=== PATIENT | female | born 1975 | race Caucasian/White ===

== ENCOUNTER → 2021-12-12 01:38 | Outpatient (CLI) | payer BC, SELFPAY ==
--- NOTE | 2021-12-12 15:00 | DI.MAMMO_ITS ---
Exam(s) MAMMO SCREENING EXAM: MAMMO SCREENING CLINICAL HISTORY: SCREENING, Z12.39 TECHNIQUE: Bilateral full field digital CC and MLO mammographic images were obtained with 3D tomosyn thesis and utilizing computer aided detection (CAD). COMPARISON: Available for comparison. FINDINGS: Masses/Architectural Distortion: There is a new round ovoid density in the inferior left breast seen on the MLO view. There is also new ovoid density in the medial aspect of the right breast on the charging crane operator niocaudad view. Microcalcifications: No suspicious pleomorphic-type are seen. Skin Thickening/Nipple Retraction: None. IMPRESSION: 1. Ovoid density seen in both the left and right breast as described above. 2. These area should be further evaluated with spot compression views and ultrasound. BI-RADS Category 0 - Assessment Incomplete: Need additional imaging evaluation Breast Density - Category B - Scattered areas of fibroglandular density Breast density category C or D implies that the patient has dense breast tissue. Dense breast tissue is very common and is not abnormal but dense breast tissue can make it harder to find cancer on a ma mmogram. Also, dense breast tissue may increase their breast cancer risk. This information about the result of the mammogram report was provided to the patient to raise their awareness. Use this report when you speak with the patient about their risks for breast cancer, which includes their family hist ory. At that time, you may recommend for more screening tests (Ultrasound or MRI) as they might be us eful based on their risk. A negative radiographic report should not delay biopsy if a dominant or clinically suspicious mass is present. Up to ten percent of cancers are not identified on mammography. A negative report may reinforce clinical impression. Adenosis and dense breasts may obscure an underlying neoplasm. False positive reports average 6 to 10%. Patient will receive a letter notifying them of these results.
== END ==
PROVIDERS: Visit Provider Nurse Practitioner Family
DX: Z12.31 Encounter for screening mammogram for malignant neoplasm of breast (principal); R92.8 Other abnormal and inconclusive findings on diagnostic imaging of breast
CPT/HCPCS: 77063; 77067

== ENCOUNTER → 2022-01-06 00:19 | Outpatient (CLI) | payer BC, SELFPAY ==
--- OUTSIDE RECORDS SUMMARY | 2022-01-06 00:27 | XMS_ITS | Encounter Summary ---
:1975 Author Organization [facility] [place] [address] Care Team Providers Name Role Phone Karine Dailey MD Primary Care Provider Reason for Visit Reason Comments Follow-up Encounter Details Date Type Department Care Team Description 01/08/2015 Follow-Up Dermatology at [facility], DR JOSSIE miller ([address] Glass, Wally Gomez MD [facility] DR [place] [address] Dx) [address] [place] [address] Social History Tobacco Use Types Packs/Day Years Used Date Never Smoker Sex Assigned at Date Recorded Not on file documented as of this encounter [employer] Avni Rock, CLAU - 01/08/2015 8:55 AM EDT Chief Complaint: Lesion History of Present Illness Madeline Child is a 39 y.o. female. Complains of a pigmented lesion on the back of her neck that has been present for many years but several weeks ago it developed a red dot in the center but that resolved. No symtpoms. Never been treated or biopsied. ? N/A Skin Cancer History No personal history of skin cancer. No family history of skin cancer. Allergies Allergies not on file Medications No current outpatient prescriptions on file. Reconciled as above Review of Systems Significant for no fevers, chills, night sweats, or fatigue and no other pertinent and acute changesin constitutional, other skin, HEENT, gastrointestinal, respiratory, cardiovascular, genitourinary, lymphatic, musculoskeletal, endocrine, neurologic, psychiatric, allergy/immunology systems upon specific queries. Past Medical History HTN, hypothyroidism Past Surgical History Gallbladder, Fibroidectomy, tonsillectomy Family Medical History NMSC - father Social History Tobacco: No Alcohol: 3-4 ounces per week Examination Standby: Lachelle Hollis, Clinical Scribe Pain 0/10. Mood is appropriate. Well developed, well-nourished in no apparent distress, alert and oriented to time, person, place and situation. Skin Type: II. Focused examination of head - including the face, ears, nose - neck significant for a soft 6 mm thick brown glynn pink papule on left posterior neck. Assessment and Plan Benign Nevus Morphology reassuring for benign nevus. No symptoms. No treatment at this time. Discussed option to remove cosmetically for which the patient will be financially responsible. Return to clinic prn if changes in nevi observed or symptoms develop. Counseled: sun protection, self skin exams, regular provider skin exams, and the ABCDEs of melanoma/NMSC (handout given). Answered all questions. I am documenting this encounter acting as the scribe for and in the presence of Dr. Mckinnon: AVNI ROCK, REHABILITATION SUPERVISOR and Lachelle Hollis, Clinical Scribe Follow-up: PRN I performed the above scribed service and agree with the accuracy of the documentation in this encounter. Wally Mckinnon MD FAAD Section of Dermatology [facility] documented in this encounter Plan of Treatment Not on filedocumented as of this encounter Visit Diagnoses Diagnosis Benign nevus - Primary Benign neoplasm of skin, site unspecifie d documented in this encounter Care Teams Demand Planning Analyst Relationship Specialty Start Date End Date Karine Dailey MD PCP - General 12/24/[address] [place] [address] documented as of this encounter
--- OUTSIDE RECORDS SUMMARY | 2022-01-06 00:27 | XMS_ITS | Clinical Summary ---
:1975 Author Organization [facility] [place] [address] Care Team Providers Name Role Phone Karine Dailey MD Primary Care Provider Allergies Active Allergy Reactions Severity Noted Date Comments Troy Inhibitors 01/08/2015 Sulfamethoxazole-Trimethoprim 01/08/2015 Medications Medication Sig Dispensed Refills Start Date End Date Status losartan (COZAAR) 25 mg Take 25 mg by 0 Active Tablet mouth daily. hydrochlorothiazide Take 25 mg by 0 Active (HYDRODIURIL) 25 mg Tablet mouth daily. levothyroxine (SYNTHROID) Take 100 mcg 0 Active 100 mcg Tablet by mouth daily. multivitamin (THERAGRAN) Take 1 tablet 0 Active Tablet by mouth daily. Calcium Carbonate-Vitamin Take by 0 Active D3 600 mg(1,500mg) -400 mouth. unit Capsule Flaxseed Oil 1,000 mg Take by 0 Active Capsule mouth. pyridoxine (B-6) 100 mg Take 100 mg 0 Active Tablet by mouth daily. Ascorbic Acid 500 mg Take by 0 Active Tablet, Chewable mouth. fexofenadine (JACQUELYN) 180 Take 180 mg 0 Active mg Tablet by mouth daily. ranitidine (ZANTAC) 75 mg Take 75 mg by 0 Active Tablet mouth 2 times daily. Active Problems Problem Noted Date Hypothyroidism 01/08/2015 Social History Tobacco Use Types Packs/Day Years Used Date Never Smoker Sex Assigned at Date Recorded Not on file Plan of Treatment Health Maintenance Due Date Last Done Comments Covid-19 Vaccine (#1) 1978 HIV screen 11/03/1991 Hepatitis C Screening 11/03/1991 Tdap adult 1992 Tetanus vaccine 1992 HPV test 11/03/2003 PAP Smear 11/03/2003 Breast Cancer Share Decision Needed 2013 Colonoscopy 2018 Influenza (Flu) vaccine (1 of - Influenza standard 02/02/2022 series) Care Teams Fraud Prevention Analyst Relationship Specialty Start Date End Date Karine Dailey MD PCP - General 12/24/[address] [place] [id number]
--- NOTE | 2022-01-06 09:11 | DI.MAMMO_ITS ---
Exam(s) US BREAST RT LIMITED US BREAST LT LIMITED MG MAMMO SCREEN CALL BACK BI EXAM: MG MAMMO SCREEN CALL BACK BI and bilateral breast limited ultrasound CLINICAL HISTORY: OVOID DENSITY BILAT BREAST. TECHNIQUE: Craniocaudal and mediolateral oblique Full Field Digital Mammography views of the bilater al breast with Computer Aided Diagnosis followed by Tomosynthesis and bilateral breast ultrasound. COMPARISON: Comparison made with prior examinations. FINDINGS: Mammography/Tomosynthesis: Masses/Architectural Distortion: The nodular opacity seen in the left breast is not visualized on the additional views. It appears represent overlying fibroglandular tissue. The nodular density in the right breast is less concerning on the additional views and may represent an intraparenchymal lymph node. Microcalcifictions: No suspicious pleomorphic-type are seen. Skin Thickening/Nipple Retraction: None. Bilateral limited breast US: Echotexture: Normal appearance of the glandular tissue. Shadowing: No suspicious foci. Cyst: A 0.5 x 0.3 x 0.6 cm simple cyst is seen in the left breast at the 6 o'clock position 2 cm from the nipple. No cystic or solid lesions are seen in the right breast. Solid lesions: None seen. Ductal dilation: None. IMPRESSION: 1. No evidence of malignancy is noted. 2. Unless there is more urgent need, follow-up screening mammography is recommended, as per [employer] guidelines. 3. The findings were discussed with the patient on the date of the examination. BI-RADS Category 2 - Benign Findings Breast Density - Category B - Scattered areas of fibroglandular density Breast density Category C or D implies that the patient has dense breast tissue. Dense breast tissue can make it harder to find cancer on a mammogram. Dense breast tissue is also associated with an incr eased risk of breast cancer. This information about the result of the mammogram report was provided to the patient to raise their awareness. Use this report when you speak with the patient about their risks for breast cancer, which includes their family history. At that time, you may recommend additional screening tests (Ultrasoun d or MRI) as these tests may add significant information. A negative radiographic report should not delay biopsy if a dominant or clinically suspicious mass is present. Up to ten percent of cancers are not identified on mammography. A negative report may reinforce clinical impression. Adenosis and dense breasts may obscure an underlying neoplasm. False positive reports average 6 to 10%. Patient will receive a letter notifying them of these results.
== END ==
PROVIDERS: PCP Nurse Practitioner Family; Visit Provider Nurse Practitioner Family
DX: Z12.31 Encounter for screening mammogram for malignant neoplasm of breast (principal); R92.8 Other abnormal and inconclusive findings on diagnostic imaging of breast; N60.02 Solitary cyst of left breast; N64.59 Other signs and symptoms in breast
CPT/HCPCS: 76642; 77063; 77067

== ENCOUNTER 2022-08-11 18:26 | Outpatient (REF) | payer BC, SELFPAY ==
[2022-08-11 18:53] LABS: ALT 39 U/L (14-59); AST 24 U/L (15-37); Albumin 3.7 g/dL (3.4-5.0); Alkaline Phosphatase 76 U/L (46-116); Anion Gap 9.4 mmol/L (3-11); BUN 10 mg/dL (7-18); Bilirubin, Total 0.4 mg/dL (0.2-1.0); CO2 28.6 mmol/L (21.0-32.0); CREATININE 0.7 mg/dL (0.55-1.02); Calcium 9.1 mg/dL (8.5-10.1); Chloride 105 mmol/L (98-107); Estimated GFR 106.62 (mL/min/1.73m2); Glucose 114 mg/dL (74-106); Potassium 3.3 mmol/L (3.5-5.1); Sodium 143 mmol/L (136-145); TSH (W/Ref FT4) 1.01 uIU/mL (0.36-3.74); Total Protein 7.1 g/dL (6.4-8.2)
[2022-08-11 19:08] LABS: Hemoglobin A1C 5.5 % (<5.7)
== END 2022-08-11 18:27 | disposition home or self-care (01) ==
LOC: NCHCN 18:26
PROVIDERS: PCP Nurse Practitioner Family; Visit Provider Nurse Practitioner Family
DX: Z00.00 Encounter for general adult medical examination without abnormal findings (principal)
CPT/HCPCS: 80053; 83036; 84443

== ENCOUNTER 2022-09-26 21:38 | Outpatient (REF) | payer BC, SELFPAY ==
[2022-09-26 21:09] LABS: Abs Immature Grans 0.02 10^3/uL (0.0-0.06); Absolute Basophil Count 0.08 10^3/uL (0.0-0.2); Absolute Lymphocyte Count 2.84 10^3/uL (1.2-3.4); Absolute Monocyte Count 0.55 10^3/uL (0.1-0.8); Absolute Neutrophil Count 4.34 10^3/uL (1.2-6.7); Eosinophils % 1.3; HCT 46.5 % (36.0-46.0); HGB 15.7 g/dL (11.2-15.7); Immature Grans % 0.3; Lymphocytes % 35.8; MCH 29.3 pg (27.0-33.0); MCHC 33.8 % (32.0-36.0); MCV 87 fL (80-95); MPV 10.5 fL (8.0-11.0); Monocytes % 6.9; Neutrophils % 54.7; Platelet Count 240 10^3/uL (130-400); RBC 5.36 10^6/uL (3.93-5.22); RDW 12.7 % (11.7-14.6); RDW-SD 39.9 fL; WBC 7.93 10^3/uL (4.4-10.8)
[2022-09-26 21:25] LABS: Amylase 20 U/L (25-115); Lipase 22 U/L (16-77)
== END 2022-09-26 21:39 | disposition home or self-care (01) ==
LOC: LBN 21:38
PROVIDERS: PCP Nurse Practitioner Family; Visit Provider Nurse Practitioner Family
DX: R68.81 Early satiety (principal); R19.4 Change in bowel habit
CPT/HCPCS: 83690; 82150; 85025

== ENCOUNTER 2023-01-03 18:20 | Outpatient (REF) | payer BC, SELFPAY ==
[2023-01-03 15:35] LABS: Abs Immature Grans 0.08 10^3/uL (0.0-0.06); Absolute Basophil Count 0.08 10^3/uL (0.0-0.2); Absolute Eosinophil Count 0.12 10^3/uL (0.0-0.7); Absolute Lymphocyte Count 2.23 10^3/uL (1.2-3.4); Absolute Monocyte Count 0.63 10^3/uL (0.1-0.8); Basophils % 0.6; Eosinophils % 0.9; HCT 42.5 % (36.0-46.0); HGB 14.6 g/dL (11.2-15.7); Immature Grans % 0.6; Lymphocytes % 17.4; MCH 29.6 pg (27.0-33.0); MCHC 34.4 % (32.0-36.0); MCV 86 fL (80-95); MPV 10.2 fL (8.0-11.0); Monocytes % 4.9; Neutrophils % 75.6; Platelet Count 240 10^3/uL (130-400); RBC 4.93 10^6/uL (3.93-5.22); RDW-SD 40.6 fL; WBC 12.79 10^3/uL (4.4-10.8)
[2023-01-03 15:36] LABS: Absolute Neutrophil Count 9.67 10^3/uL (1.2-6.7)
[2023-01-03 15:37] LABS: ESR 23 mm/hr (0-20)
[2023-01-03 16:04] LABS: Anion Gap 9.6 mmol/L (3-11); BUN 8 mg/dL (7-18); CO2 28.4 mmol/L (21.0-32.0); CREATININE 0.7 mg/dL (0.55-1.02); Calcium 9.4 mg/dL (8.5-10.1); Chloride 102 mmol/L (98-107); Estimated GFR 105.95 (mL/min/1.73m2); Glucose 92 mg/dL (74-106); Potassium 3.6 mmol/L (3.5-5.1); Sodium 140 mmol/L (136-145); Uric Acid 6.8 mg/dL (2.6-6.0)
== END 2023-01-03 18:21 | disposition home or self-care (01) ==
LOC: NCHCN 18:20
PROVIDERS: PCP Nurse Practitioner Family; Visit Provider Nurse Practitioner Family
DX: R22.41 Localized swelling, mass and lump, right lower limb (principal)
CPT/HCPCS: 80048; 85652; 84550; 85025; 86140

== ENCOUNTER 2023-02-02 21:35 | Outpatient (REF) | payer BC, SELFPAY ==
[2023-02-02 19:26] LABS: Uric Acid 10.1 mg/dL (2.6-6.0)
== END 2023-02-02 21:36 | disposition home or self-care (01) ==
LOC: NCHCN 21:35
PROVIDERS: PCP Nurse Practitioner Family; Visit Provider Nurse Practitioner Family
DX: R22.41 Localized swelling, mass and lump, right lower limb (principal)
CPT/HCPCS: 84550

== ENCOUNTER 2023-10-17 19:54 | Outpatient (REF) | payer BC, SELFPAY ==
[2023-10-17 21:08] LABS: ALT 49 U/L (14-59); AST 38 U/L (15-37); Albumin 3.9 g/dL (3.4-5.0); Alkaline Phosphatase 86 U/L (46-116); Anion Gap 10.7 mmol/L (3-11); BUN 13 mg/dL (7-18); Bilirubin, Total 0.7 mg/dL (0.2-1.0); CO2 28.3 mmol/L (21.0-32.0); CREATININE 0.8 mg/dL (0.55-1.02); Calcium 9.5 mg/dL (8.5-10.1); Calculated LDL 143 mg/dL (<100); Chloride 103 mmol/L (98-107); Cholesterol 231 mg/dL (<200); Estimated GFR 90.27 (mL/min/1.73m2); Glucose 85 mg/dL (74-106); HDL Cholesterol 56 mg/dL (40-60); Potassium 3.7 mmol/L (3.5-5.1); Sodium 142 mmol/L (136-145); TSH 0.71 uIU/Ml (0.36-3.74); Total Protein 7.2 g/dL (6.4-8.2); Triglyceride 164 mg/dL (<150)
[2023-10-17 21:09] LABS: Hemoglobin A1C 5.7 % (<5.7)
[2023-10-17 21:38] LABS: FREE T4 1.33 ng/dL (0.76-1.46)
== END 2023-10-17 19:55 | disposition home or self-care (01) ==
LOC: NCHCN 19:54
PROVIDERS: Visit Provider Nurse Practitioner Family
DX: Z13.1 Encounter for screening for diabetes mellitus (principal); E78.5 Hyperlipidemia, unspecified; E03.9 Hypothyroidism, unspecified; I10 Essential (primary) hypertension
CPT/HCPCS: 80053; 80061; 83036; 84439; 84443

== ENCOUNTER → 2023-10-23 01:46 | Outpatient (CLI) | payer BC, SELFPAY ==
--- NOTE | 2023-10-23 08:33 | DI.MAMMO_ITS ---
Exam(s) MAMMO SCREENING EXAM: MAMMO SCREENING CLINICAL HISTORY: Z12.31 Screening TECHNIQUE: Mammograms were interpreted according to the usual protocol including computer analysis w [employer] CAD system, tomosynthesis and C-view imaging. COMPARISON: 2019 and 2021 FINDINGS: The breasts are composed of scattered fibroglandular densities, Breast Density category B. No suspicious masses or suspicious microcalcifications are seen. No skin thickening or abnormal axillary lymph nodes are seen. Previously questioned areas of nodularity are less evident on today's exam. IMPRESSION: BI-RADS Category 1, Negative mammogram Yearly screening mammography is recommended. Breast Density - Category B, scattered fibroglandular densities. A negative radiographic report should not delay biopsy if a dominant or clinically suspicious mass is present. Up to ten percent of cancers are not identified on mammography. A negative report may reinforce clinical impression. Adenosis and dense breasts may obscure an underlying neoplasm. False positive reports average 6 to 10%. Patient will receive a letter notifying them of these results.
== END ==
PROVIDERS: Visit Provider Nurse Practitioner Family
DX: Z12.31 Encounter for screening mammogram for malignant neoplasm of breast (principal)
CPT/HCPCS: 77063; 77067

== ENCOUNTER 2024-09-17 14:02 | Outpatient (REF) | payer BC, SELFPAY ==
[2024-09-17 20:11] LABS: Abs Immature Grans 0.03 10^3/uL (0.0-0.06); Absolute Basophil Count 0.07 10^3/uL (0.0-0.2); Absolute Eosinophil Count 0.13 10^3/uL (0.0-0.7); Absolute Lymphocyte Count 2.83 10^3/uL (1.2-3.4); Absolute Monocyte Count 0.54 10^3/uL (0.1-0.8); Absolute Neutrophil Count 4.21 10^3/uL (1.2-6.7); Basophils % 0.9 %; Eosinophils % 1.7 %; HCT 46.5 % (36.0-46.0); HGB 15.6 g/dL (11.2-15.7); Immature Grans % 0.4 %; Lymphocytes % 36.2 %; MCH 29.7 pg (27.0-33.0); MCHC 33.5 % (32.0-36.0); MCV 89 fL (80-95); MPV 11.1 fL (8.0-11.0); Monocytes % 6.9 %; Neutrophils % 53.9 %; Platelet Count 123 10^3/uL (130-400); RBC 5.25 10^6/uL (3.93-5.22); RDW 12.9 % (11.7-14.6); RDW-SD 41.8 fL; WBC 7.81 10^3/uL (4.4-10.8)
[2024-09-17 20:46] LABS: Hemoglobin A1C 5.7 % (<5.7)
[2024-09-17 20:50] LABS: ALT 53 U/L (14-59); AST 32 U/L (15-37); Albumin 3.9 g/dL (3.4-5.0); Alkaline Phosphatase 95 U/L (46-116); Anion Gap 10.3 mmol/L (3-11); BUN 12 mg/dL (7-18); Bilirubin, Total 0.5 mg/dL (0.2-1.0); CO2 29.7 mmol/L (21.0-32.0); Calcium 9.9 mg/dL (8.5-10.1); Calculated LDL 151 mg/dL (<100); Chloride 107 mmol/L (98-107); Cholesterol 245 mg/dL (<200); Estimated GFR 68.63 (mL/min/1.73m2); Glucose 87 mg/dL (74-106); HDL Cholesterol 58 mg/dL (>or=50); Potassium 3.8 mmol/L (3.5-5.1); Sodium 147 mmol/L (136-145); TSH (W/Ref FT4) 1.21 uIU/mL (0.36-3.74); Total Protein 7.4 g/dL (6.4-8.2); Triglyceride 181 mg/dL (<150)
== END 2024-09-17 14:03 | disposition home or self-care (01) ==
LOC: NCHCN 14:02
PROVIDERS: PCP Nurse Practitioner Family; Visit Provider Nurse Practitioner Family
DX: Z68.42 Body mass index [BMI] 45.0-49.9, adult (principal); I10 Essential (primary) hypertension; E78.5 Hyperlipidemia, unspecified; E03.9 Hypothyroidism, unspecified; R53.83 Other fatigue
CPT/HCPCS: 80053; 80061; 83036; 84443; 85025

== ENCOUNTER 2024-10-23 02:08 | Outpatient (CLI) | payer BC, SELFPAY ==
--- NOTE | 2024-10-23 07:50 | DI.MAMMO_ITS ---
Exam(s) MAMMO SCREENING EXAM: MAMMO SCREENING CLINICAL HISTORY: SCREENING,Z12.39 TECHNIQUE: Mammograms were interpreted according to the usual protocol including computer analysis w [employer] CAD system, tomosynthesis and C-view imaging. COMPARISON: 2019 through 2023 FINDINGS: The breasts are composed of mainly fatty density , Breast Density category A. No suspicious masses or suspicious microcalcifications are seen. No skin thickening or abnormal axillary lymph nodes are seen. There has been no significant change from prior exams. IMPRESSION: BI-RADS Category 1, Negative mammogram Yearly screening mammography is recommended. Breast Density - Category A, fatty density. Breast density Category C or D implies that the patient has dense breast tissue. Dense breast tissue can make it harder to find cancer on a mammogram. Dense breast tissue is also associated with an incr eased risk of breast cancer. This information about the result of the mammogram report was provided to the patient to raise their awareness. Use this report when you speak with the patient about their risks for breast cancer, which includes their family history. At that time, you may recommend additional screening tests (Ultrasoun d or MRI) as these tests may add significant information. A negative radiographic report should not delay biopsy if a dominant or clinically suspicious mass is present. Up to ten percent of cancers are not identified on mammography. A negative report may reinforce clinical impression. Adenosis and dense breasts may obscure an underlying neoplasm. False positive reports average 6 to 10%. Patient will receive a letter notifying them of these results.
== END 2024-10-23 02:28 ==
LOC: DI 02:08
PROVIDERS: PCP Nurse Practitioner Family; Visit Provider Nurse Practitioner Family
DX: Z12.31 Encounter for screening mammogram for malignant neoplasm of breast (principal)
CPT/HCPCS: 77063; 77067

== ENCOUNTER 2024-12-17 11:51 | Outpatient (REF) | payer BC, SELFPAY ==
[2024-12-17 18:26] LABS: Anion Gap 9.5 mmol/L (3-11); BUN 10 mg/dL (7-18); CO2 29.5 mmol/L (21.0-32.0); Calcium 9.1 mg/dL (8.5-10.1); Chloride 105 mmol/L (98-107); Estimated GFR 104.65 (mL/min/1.73m2); Glucose 98 mg/dL (74-106); Potassium 3.7 mmol/L (3.5-5.1); Sodium 144 mmol/L (136-145); Uric Acid 8.9 mg/dL (2.6-6.0)
== END 2024-12-17 11:52 | disposition home or self-care (01) ==
LOC: NCHCN 11:51
PROVIDERS: PCP Nurse Practitioner Family; Visit Provider Nurse Practitioner Family
DX: M10.9 Gout, unspecified (principal)
CPT/HCPCS: 80048; 84550

== ENCOUNTER 2025-01-27 15:14 | Outpatient (CLI) | payer BC, SELFPAY ==
[2025-01-27 12:38] LABS: Anion Gap 9.0 mmol/L (3-11); BUN 12 mg/dL (7-18); CO2 27.0 mmol/L (21.0-32.0); Calcium 9.5 mg/dL (8.5-10.1); Chloride 105 mmol/L (98-107); Estimated GFR 89.15 (mL/min/1.73m2); Glucose 122 mg/dL (74-106); Potassium 3.7 mmol/L (3.5-5.1); Sodium 141 mmol/L (136-145); Uric Acid 5.6 mg/dL (2.6-6.0)
== END 2025-01-27 15:15 | disposition home or self-care (01) ==
LOC: LBO 15:14
PROVIDERS: PCP Nurse Practitioner Family; Visit Provider Nurse Practitioner Family
DX: M10.9 Gout, unspecified (principal); I10 Essential (primary) hypertension
CPT/HCPCS: 36415; 80048; 84550